=== PATIENT | male | born 1985 | race African-American/Black ===

== ENCOUNTER 2018-01-04 06:04 | Emergency (ER) | payer BC ==
--- NOTE | 2018-01-04 06:27 | EDM.PDOC ---
ED HPI GENERAL MEDICAL PROBLEM - General Chief Complaint: ENT Problem Stated Complaint: TOOTH PAIN Time Seen by Provider: 01/04/18 06:15 Source of Information: Reports: Patient History Limitations: Reports: No Limitations - History of Present Illness INITIAL COMMENTS - FREE TEXT/NARRATIVE: The patient presents with left upper 3rd molar pain. This started about 1 1/2 weeks ago. The pain comes and goes but the past few days it is worse. He is scheduled to go to the dentist in about 2 weeks. He has some edema to the left side of his face. He has no fever or chills. Onset: Gradual Duration: Week(s): (10/07) Location: Reports: Face Quality: Reports: Sharp Severity: Moderate Improves with: Reports: None Worsens with: Reports: None Associated Symptoms: Reports: No Other Symptoms Left Upper Tooth/Teeth Pain Score (Numeric/FACES): 10 - Related Data Allergies Allergy/AdvReac Type Severity Reaction Status Date / Time No Known Allergies Allergy Verified 01/04/18 06:10 Home Meds: Home Meds Hydrocodone/Acetaminophen [Hydrocodon-Acetaminophen 5-325] 1 - 2 each PO Q6HR PRN #20 tablet 01/04/18 [Rx] Hydrocodone/Acetaminophen [Hydrocodon-Acetaminophen 5-325] 1 tab PO Q4H PRN 10/23 [History] Penicillin V Potassium 500 mg PO Q6HR #40 tab 01/04/18 [Rx] Past Medical History - Past Health History Medical/Surgical History: Denies Medical/Surgical History Musculoskeletal History: Reports: Back Pain, Chronic Social & Family History - Family History Family Medical History: Noncontributory - Tobacco Use Smoking Status *Q: Current Every Day Smoker Years of Tobacco use: 1 Packs/Tins Daily: 0.1 - Recreational Drug Use Recreational Drug Use: No ED ROS ENT - Review of Systems Review Of Systems: See Below Constitutional: Reports: No Symptoms HEENT: Reports: Dental Pain Respiratory: Reports: No Symptoms Cardiovascular: Reports: No Symptoms Endocrine: Reports: No Symptoms GI/Abdominal: Reports: No Symptoms : Reports: No Symptoms ED EXAM, ENT - Physical Exam Exam: See Below Exam Limited By: No Limitations General Appearance: Alert, No Apparent Distress Ears: Normal External Exam Nose: Normal Inspection Mouth/Throat: Other (Pain upon palpation and edema with erythema to the gum line of the 3rd upper left molar. Mild edema to the left cheeck.) Course - Vital Signs Last Recorded V/S: Last Vital Signs Temp 97.1 F 01/04/18 06:08 Pulse 60 01/04/18 06:08 Resp 20 01/04/18 06:08 BP 150/101 H 01/04/18 06:08 Pulse Ox 96 01/04/18 06:08 - Re-Assessments/Exams Free Text/Narrative Re-Assessment/Exam: 01/04/18 06:23 I will giv ehim some penicillin VK and some hydrocodone. Departure - Departure Time of Disposition: 06:25 Disposition: Home, Self-Care 01 Condition: Good Clinical Impression: Dental abscess, Pain, dental - Discharge Information Prescriptions: Hydrocodone/Acetaminophen [Hydrocodon-Acetaminophen 5-325] 1 - 2 each PO Q6HR PRN #20 tablet PRN Reason: Pain Penicillin V Potassium 500 mg PO Q6HR #40 tab Referrals: Ellen Jones NP [Primary Care Provider] - Additional Instructions: Take the penicillin VK 1 pill every 6 hours for 10 days. Take the hydrocodone 1 to 2 pills every 6 hours as needed for pain. You may also try an antiinflammatory such as motrin or aleve. Put warm compresses on your face 3 times per day for 3 days. Follow up with your dentist. Please return if you are worse.
== END 2018-01-04 06:35 | disposition home or self-care (01) ==
LOC: JD.ED 06:04
DX: K04.7 Periapical abscess without sinus (principal); F17.210 Nicotine dependence, cigarettes, uncomplicated
CPT/HCPCS: 99282; 99283

== ENCOUNTER 2018-10-14 01:16 | Emergency (ER) | payer BC ==
--- NOTE | 2018-10-14 03:13 | EDM.PDOC ---
ED HPI GENERAL MEDICAL PROBLEM - General Chief Complaint: ENT Problem Stated Complaint: TOOTH PAIN Time Seen by Provider: 10/14/18 03:12 - History of Present Illness INITIAL COMMENTS - FREE TEXT/NARRATIVE: 33-year-old male presents emergency room with dental pain. This started a couple of days ago progressively getting worse involving the right lower rear wisdom tooth. The patient is a problems with this in the past but it's been a year and half or so since that required treatment he has not followed up with the dentist yet. Patient denies any fevers chills no facial swelling he had fluctuant area near the tooth popped it on its own and is been draining intermittently ever since Left Oral/Mouth Pain Score (Numeric/FACES): 8 - Related Data Allergies Allergy/AdvReac Type Severity Reaction Status Date / Time No Known Allergies Allergy Verified 10/14/18 01:54 Home Meds: Home Meds Hydrocodone/Acetaminophen [Hydrocodon-Acetaminophen 5-325] 1 - 2 each PO Q6HR PRN #20 tablet 01/04/18 [Rx] Hydrocodone/Acetaminophen [Hydrocodon-Acetaminophen 5-325] 1 tab PO Q4H PRN 10/23 [History] Penicillin V Potassium 500 mg PO Q6HR #40 tab 01/04/18 [Rx] Amoxicillin 500 mg PO TID #30 tab 10/14/18 [Rx] Past Medical History - Past Health History Medical/Surgical History: Denies Medical/Surgical History Musculoskeletal History: Reports: Back Pain, Chronic Social & Family History - Family History Family Medical History: Noncontributory - Tobacco Use Smoking Status *Q: Never Smoker - Recreational Drug Use Recreational Drug Use: No ED ROS ENT - Review of Systems Review Of Systems: See Below Constitutional: Reports: No Symptoms HEENT: Reports: Dental Pain Respiratory: Reports: No Symptoms Cardiovascular: Reports: No Symptoms GI/Abdominal: Reports: No Symptoms ED EXAM, ENT - Physical Exam Exam: See Below Exam Limited By: No Limitations General Appearance: Alert, No Apparent Distress Ears: Normal External Exam, Normal Canal, Hearing Grossly Normal, Normal TMs Nose: Normal Inspection, Normal Mucousa, No Blood Mouth/Throat: Normal Inspection, Normal Gums, Normal Lips, Normal Oropharynx, Other (He has some gingival swelling no obvious drainage around the affected tooth infected tooth has a large crater in it). No: Normal Teeth Head: Atraumatic, Normocephalic Neck: Normal Inspection, Supple, Non-Tender, Full Range of Motion. No: Lymphadenopathy (L), Lymphadenopathy (R) Respiratory/Chest: No Respiratory Distress, Lungs Clear, Normal Breath Sounds Cardiovascular: Regular Rate, Rhythm, No Edema, No Murmur Course - Vital Signs Last Recorded V/S: Last Vital Signs Temp 36.6 C 10/14/18 01:51 Pulse 109 H 10/14/18 01:51 Resp 16 10/14/18 01:51 BP 142/103 H 10/14/18 01:51 Pulse Ox 98 10/14/18 01:51 - Orders/Labs/Meds Meds: Medications Discontinued Medications Generic Name Dose Route Start Last Admin Trade Name Rachana PRN Reason Stop Dose Admin Amoxicillin 500 mg 10/14/18 03:39 Amoxil PO 10/14/18 03:40 ONETIME ONE Departure - Departure Time of Disposition: 03:40 Disposition: Home, Self-Care 01 Clinical Impression: Dental abscess, Pain, dental - Discharge Information Prescriptions: Amoxicillin 500 mg PO TID #30 tab Referrals: Ellen Jones NP [Primary Care Provider] - Forms: ED Department Discharge Additional Instructions: Return to emergency room if any questions problems worsening symptoms. Follow-up with your dentist as soon as possible, this is only way to get this problem fixed. Take the antibiotics as directed. From the machine out in the waiting room your given Beverly 02/05/25 this is a strong pain medication take one or 2 every 6 hours as needed for pain do not drive or return to work within 12 hours of using this medication.
[2018-10-14] MEDS ORDERED: Amoxicillin 500 MG Cap PO ONE (03:39)
== END 2018-10-14 03:56 | disposition home or self-care (01) ==
LOC: JD.ED 01:16
DX: K04.7 Periapical abscess without sinus (principal)
CPT/HCPCS: 99283; A9270

== ENCOUNTER 2019-07-13 21:40 | Emergency (ER) | payer BC ==
--- NOTE | 2019-07-13 21:56 | EDM.PDOC ---
ED HPI GENERAL MEDICAL PROBLEM - General Chief Complaint: Genitourinary Problem Stated Complaint: lower abdominal pain Time Seen by Provider: 07/13/19 21:56 - History of Present Illness INITIAL COMMENTS - FREE TEXT/NARRATIVE: 34-year-old male presents emergency room with the dysuria and some discharge when he voids. He had this checked several months ago and the only thing found in his urine was sugar. Patient denies any nausea vomiting constipation diarrhea is not having any upper abdominal discomfort he gets some mild lower abdominal discomfort. He says he gets is clear to crusty discharge when he voids. Lower Pelvic Pain Score (Numeric/FACES): 6 - Related Data Allergies Allergy/AdvReac Type Severity Reaction Status Date / Time No Known Allergies Allergy Verified 07/13/19 21:47 Home Meds: Home Meds . [No Known Home Meds] 07/13/19 [History] Past Medical History - Past Health History Medical/Surgical History: Denies Medical/Surgical History Musculoskeletal History: Reports: Back Pain, Chronic Dermatologic History: Reports: Other (See Below) Other Dermatologic History: fatty tissue on back - Infectious Disease History Infectious Disease History: Reports: Chicken Pox Social & Family History - Family History Family Medical History: Noncontributory - Tobacco Use Smoking Status *Q: Former Smoker Used Tobacco, but Quit: Yes Month/Year Tobacco Last Used: december 2018 - Caffeine Use Caffeine Use: Reports: Energy Drinks - Recreational Drug Use Recreational Drug Use: No ED ROS GENERAL - Review of Systems Review Of Systems: See Below Constitutional: Reports: No Symptoms HEENT: Reports: No Symptoms Respiratory: Reports: No Symptoms Cardiovascular: Reports: No Symptoms Endocrine: Reports: No Symptoms GI/Abdominal: Reports: No Symptoms. Denies: Constipation, Diarrhea, Nausea, Vomiting : Reports: Dysuria, Frequency. Denies: Flank Pain Skin: Reports: No Symptoms Neurological: Reports: No Symptoms ED EXAM, GI/ABD - Physical Exam Exam: See Below General Appearance: Alert, No Apparent Distress Respiratory/Chest: No Respiratory Distress, Lungs Clear, Normal Breath Sounds Cardiovascular: Regular Rate, Rhythm, No Edema, No Murmur GI/Abdominal Exam: Normal Bowel Sounds, Soft, Non-Tender, Other (Is some mild suprapubic discomfort) Back Exam: Normal Inspection. No: CVA Tenderness (L), CVA Tenderness (R) Course - Vital Signs Last Recorded V/S: Last Vital Signs Temp 36.1 C 07/13/19 21:45 Pulse 85 07/13/19 21:45 Resp 19 07/13/19 21:45 BP 156/97 H 07/13/19 21:45 Pulse Ox 94 L 07/13/19 21:45 - Orders/Labs/Meds Orders: Active Orders 24 hr Category Date Time Status Influenza Vaccine Charge [RC] .DISCHARGE Care 07/13/19 21:52 Active Labs: Laboratory Tests 07/13/19 07/13/19 07/13/19 Range/Units 22:15 22:45 22:45 Sodium 141 (136-145) mEq/L Potassium 3.4 L (3.5-5.1) mEq/L Chloride 106 (98-107) mEq/L Carbon Dioxide 25 (21-32) mEq/L Anion Gap 13.4 (5-15) BUN 16 (7-18) mg/dL Creatinine 1.2 (0.7-1.3) mg/dL Est Cr Clr Drug Dosing 82.63 mL/min Estimated GFR (MDRD) > 60 (>60) mL/min BUN/Creatinine Ratio 13.3 L (14-18) Glucose 176 H (74-106) mg/dL Calcium 9.1 (8.5-10.1) mg/dL Urine Color Yellow (Yellow) Urine Appearance Clear (Clear) Urine pH 6.5 (5.0-8.0) Ur Specific [place] 1.025 (1.005-1.030) Urine Protein Negative (Negative) Urine Glucose (UA) Negative (Negative) Urine Ketones Negative (Negative) Urine Occult Blood Negative (Negative) Urine Nitrite Negative (Negative) Urine Bilirubin Negative (Negative) Urine Urobilinogen 0.2 (0.2-1.0) Ur Leukocyte Esterase Negative (Negative) Urine RBC 0-5 (0-5) /hpf Urine WBC 0-5 (0-5) /hpf Ur Epithelial Cells 0-5 (0-5) /hpf Urine Bacteria Not seen (FEW) /hpf Urine Mucus Not seen (FEW) /hpf C trachomatis DNA (PCR) Not detected N gonorrhoeae DNA (PCR) Not detected Meds: Medications Discontinued Medications Generic Name Dose Route Start Last Admin Trade Name Freq PRN Reason Stop Dose Admin Influenza Virus Vaccine 1 each 07/13/19 21:52 Pharmacy To Dose - Influenza Vaccine IM 07/13/19 21:53 ONETIME ONE Influenza Virus Vaccine 60 mcg 07/13/19 22:00 07/13/19 22:25 Fluzone Quad [id number] Syringe IM 07/13/19 22:01 60 mcg .ONCE ONE Administration Potassium Chloride 40 meq 07/14/19 00:57 Klor-Con M20 PO 07/14/19 00:58 ONETIME ONE - Re-Assessments/Exams Free Text/Narrative Re-Assessment/Exam: 07/14/19 01:02 GC and Chlamydia are negative at this time his urine looks okay there is no glucose in it but I clearly believe he probably has glucose in it fairly regular basis looking at his random blood sugar. I did discuss this with the patient and strongly encouraged him to follow-up with his regular physician and be evaluated for type 2 diabetes Departure - Departure Time of Disposition: 01:05 Disposition: Home, Self-Care 01 Clinical Impression: Dysuria, Glucose intolerance (impaired glucose tolerance) - Discharge Information Referrals: PCP,Not In Area [Primary Care Provider] - Forms: ED Department Discharge Additional Instructions: Return to the emergency room with any questions problems worsening symptoms. Follow-up with your regular physician discuss evaluation for type 2 diabetes. - My Orders Last 24 Hours: My Active Orders 07/13/19 21:52 Influenza Vaccine Charge [RC] .DISCHARGE - Assessment/Plan Last 24 Hours: My Active Orders 07/13/19 21:52 Influenza Vaccine Charge [RC] .DISCHARGE
[2019-07-13] MEDS ORDERED: FLU Vacc QS2019-20(6MOS+)/PF 60 MCG/0.5 ML SYRINGE IM ONE (22:00)
[2019-07-14 00:52] LABS: C. TRACHOMATIS BY PCR NOT DETECTED; N. GONORRHOEAE BY PCR NOT DETECTED
[2019-07-14] MEDS ORDERED: Potassium Chloride 20 MEQ Tab.ER PO ONE (00:57)
== END 2019-07-14 01:11 | disposition home or self-care (01) ==
LOC: JD.ED 21:40
DX: R30.0 Dysuria (principal); R73.02 Impaired glucose tolerance (oral); Z87.891 Personal history of nicotine dependence
CPT/HCPCS: 36415; 80048; 81001; 87491; 87591; 90686; 99283; 99283-25; G0008

== ENCOUNTER 2020-05-09 21:07 | Emergency (ER) | payer BC ==
[2020-05-09] MEDS ORDERED: Orphenadrine 100 MG Tab.ER PO STA (21:55)
--- NOTE | 2020-05-09 21:58 | EDM.PDOC ---
ED HPI GENERAL MEDICAL PROBLEM - General Chief Complaint: Lower Extremity Injury/Pain Stated Complaint: INJURED BACK OF LEFT THIGH Time Seen by Provider: 05/09/20 21:21 Source of Information: Reports: Patient History Limitations: Reports: No Limitations - History of Present Illness INITIAL COMMENTS - FREE TEXT/NARRATIVE: Mr. Mckeon is a very pleasant 35-year-old gentleman with no chronic medical problems and no past surgical history, who now presents the ED with posterior left thigh pain. He states that he was playing basketball around 18:00 to 9:00 brennon, going for a lay up, when he felt a pop and sudden-onset pain in his proximal posterior left thigh. Pain is induced in his posterior left thigh with flexion of his hip or knee. The patient applied a Lidoderm patch to his posterior left thigh prior to coming to the ED. No prior similar injury. Here in the ED, the patient's initial BP is found to be mildly elevated at 144/90, with a tachycardia of 110 bpm. He is afebrile, saturating 95% on room air. Other than brennon's left thigh injury, the patient denies recent fever, chills, sore throat, ear pain, nasal or sinus congestion, cough, dyspnea, chest pain, palpitations, nausea, vomiting, constipation, diarrhea, abdominal pain, urinary symptoms, recent weight gain or weight loss, recent bloody bowel movements or black bowel movements, recent joint aches, headaches, or rashes. The patient's PCP is Ellen Jones NP. Left Posterior Thigh Pain Score (Numeric/FACES): 10 - Related Data Allergies Allergy/AdvReac Type Severity Reaction Status Date / Time No Known Allergies Allergy Verified 05/09/20 21:17 Home Meds: Home Meds Orphenadrine [Norflex] 1 tab PO Q12H PRN #20 tab.er 05/09/20 [Rx] Past Medical History Endocrine/Metabolic History: Reports: Obesity/BMI 30+ Social & Family History - Family History Family Medical History: Noncontributory - Tobacco Use Smoking Status *Q: Former Smoker Tobacco Use Within Last Twelve Months: Smokeless Tobacco (Chews once every 4 to 5 days) Years of Tobacco use: 15 Packs/Tins Daily: 0.2 Month/Year Tobacco Last Used: Quit 2018 - Caffeine Use Caffeine Use: Reports: None - Alcohol Use Alcohol Use History: Yes Alcohol Use Frequency: Socially - Recreational Drug Use Recreational Drug Use: No - Living Situation & Occupation Living situation: Reports: Single, Alone 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 ED EXAM, GENERAL - Physical Exam Exam: See Below Exam Limited By: No Limitations General Appearance: Alert, WD/WN, No Apparent Distress Extremities: Other (No visible abnormality to the posterior left thigh, when compared to the right, such as swelling, erythema, ecchymosis, or abrasion. There is considerable tenderness, particularly to the midline proximal half of the posterior thigh. The patient has weakness and considerable pain with attempt to flex the knee from complete extension. He has good strength and less discomfort when trying to flex the knee from a 90 degree flexion, and intermediate strength and pain with attempt to flex between 90 and 0 degrees. Neurovascular status of the left lower extremity is intact.) Course - Vital Signs Last Recorded V/S: Last Vital Signs Temp 36.1 C 05/09/20 22:15 Pulse 93 05/09/20 22:15 Resp 18 05/09/20 22:15 BP 136/96 H 05/09/20 22:15 Pulse Ox 95 05/09/20 22:15 - Orders/Labs/Meds Meds: Medications Discontinued Medications Generic Name Dose Route Start Last Admin Trade Name Rachana PRN Reason Stop Dose Admin Orphenadrine Citrate 100 mg 05/09/20 21:55 05/09/20 22:01 Norflex PO 05/09/20 21:56 100 mg ONETIME STA Administration - Re-Assessments/Exams Free Text/Narrative Re-Assessment/Exam: 05/09/20 21:53 As above, the patient suffered a left hamstring injury when he went for a layup while playing basketball earlier [employer]. He has flexion strength to his left hamstring, although with considerable pain. I suspect that he has a hamstring strain, not a rupture, however, I attempted to order an ultrasound of the hamstrings, however, the boiler technician is performing an ultrasound on a different patient, and when I asked her what order I should enter, she replied that she has never performed one of those tests before. I therefore Dennis wrapped the thigh, extending to the waist, followed by supporting tape. The patient will be started on Norflex here in the ED, and I will submit a prescription for the same. I recommended that he take [id number] Tylenol as needed for discomfort, and I will refer him to Dr. Gómez for further evaluation. I will also write a note for the patient's work. Departure - Departure Time of Disposition: 21:56 Disposition: Home, Self-Care 01 Condition: Good Clinical Impression: Left hamstring injury - Discharge Information *PRESCRIPTION DRUG MONITORING PROGRAM REVIEWED*: Not Applicable *COPY OF PRESCRIPTION DRUG MONITORING REPORT IN PATIENT MARIO: Not Applicable Prescriptions: Orphenadrine [Norflex] 1 tab PO Q12H PRN #20 tab.er PRN Reason: Muscle Spasm Instructions: Muscle Strain, Ided-so-Nces Referrals: Ellen Jones NP [Primary Care Provider] - Neri Gómez MD [Physician] - Forms: ED Department Discharge, ED Return to Work/School Form Additional Instructions: You were seen in the emergency room after feeling a pop and developing sudden onset posterior left thigh pain while playing basketball. Based on your history and physical examination, you have most likely strained your left hamstring, however, it is also possible that you have ruptured 1 of the hamstring tendons. Supporting Dennis wrap and tape was provided in the ER. You have been started on the muscle relaxant Norflex, and a prescription for Norflex has been sent to the [facility] pharmacy, located just south and across the [address] from [facility]. Take 1 tablet of Norflex every 12 hours, starting tomorrow morning, 05/10/2020, as prescribed. In addition to Norflex, you may take [id number] Tylenol, however, we recommend that you avoid NSAIDs such as ibuprofen or naproxen at this time. We recommend that you apply ice packs to the back of your left thigh is much as possible over the next 2 days, to help minimize swelling. Please follow-up with the Orthopedic Surgeon Dr. Neri Gómez at the next available appointment. If any other problems, please do not hesitate to return to the ER. Sepsis Event Note (ED) - Evaluation Sepsis Screening Result: No Definite Risk
== END 2020-05-09 22:16 | disposition home or self-care (01) ==
LOC: JD.ED 21:07
DX: S79.922A Unspecified injury of left thigh, initial encounter (principal); E66.9 Obesity, unspecified; Z87.891 Personal history of nicotine dependence; Z68.34 Body mass index [BMI] 34.0-34.9, adult; Y93.67 Activity, basketball
CPT/HCPCS: 99283; A9270

== ENCOUNTER 2021-02-07 00:04 | Day surgery (SDC) | payer BC ==
[2021-02-07] MEDS ORDERED: Glucagon,Human Recombinant 1 MG Vial IVPUSH ONE (00:31)
[2021-02-07] MEDS ORDERED: Lactated Ringers 1,000 ML IV ONE (00:42)
--- NOTE | 2021-02-07 00:48 | EDM.PDOC ---
ED HPI GENERAL MEDICAL PROBLEM - General Chief Complaint: ENT Problem Stated Complaint: UNABLE TO EAT/SWALLOW/CHEST PAIN Time Seen by Provider: 02/07/21 00:29 Source of Information: Reports: Patient History Limitations: Reports: No Limitations - History of Present Illness INITIAL COMMENTS - FREE TEXT/NARRATIVE: Patient arrived to ED via private vehicle He is accompanied by his girlfriend Onset of symptoms was about 1600 today He cooked steak, and had taken a bite of it States that it got stuck in his throat Since that time he has been unable to swallow any food or fluid, reports regurgitation with any attempt Also has been unable to tolerate oral secretions Denies known history of esophageal stricture Endorses 1-2 year history of occasional swallowing delay while eating, or with "anything sweet" Chest Pain Score (Numeric/FACES): 5 - Related Data Allergies Allergy/AdvReac Type Severity Reaction Status Date / Time No Known Allergies Allergy Verified 02/07/21 00:18 Home Meds: Home Meds Omeprazole 20 mg PO BID 60 Days #60 tablet. 02/07/21 [Rx] Phentermine HCl 37.5 mg PO DAILY 02/07/21 [History] Past Medical History - Past Health History Medical/Surgical History: Denies Medical/Surgical History HEENT History: Reports: None Cardiovascular History: Reports: None Respiratory History: Reports: None Gastrointestinal History: Reports: None Genitourinary History: Reports: None Musculoskeletal History: Reports: Back Pain, Chronic Neurological History: Reports: None Psychiatric History: Reports: None Endocrine/Metabolic History: Reports: Obesity/BMI 30+ Hematologic History: Reports: None Immunologic History: Reports: None Oncologic (Cancer) History: Reports: None Dermatologic History: Reports: Other (See Below) Other Dermatologic History: fatty tissue on back - Infectious Disease History Infectious Disease History: Reports: None Social & Family History - Family History Family Medical History: No Pertinent Family History - Tobacco Use Tobacco Use Status *Q: Never Tobacco User - Caffeine Use Caffeine Use: Reports: Coffee - Recreational Drug Use Recreational Drug Use: No - Living Situation & Occupation Living situation: Reports: Single, Alone 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) ED ROS GENERAL - Review of Systems Review Of Systems: See Below Free Text/Narrative/Comment: Constitutional - no fever ENT - no rhinorrhea; no congestion; no epistaxis; dysphagia Cardiovascular - no chest pain Respiratory - no shortness of breath; no cough Gastrointestinal - no abdominal pain; no nausea; vomiting; no diarrhea Musculoskeletal - no neck pain; no back pain; no extremity injury Neurological - no headache; no speech disturbance; no weakness ED EXAM, GENERAL - Physical Exam Exam: See Below Free Text/Narrative:: Constitutional - awake; alert; mild pain distress Head - no facial swelling or weakness Eyes - extra ocular motion intact; conjunctiva normal ENT - no nasal deformity; no epistaxis; normal phonation; mucus membranes moist; Neck - no swelling Respiratory - normal respiratory effort; no crackles or wheezing; no stridor Cardiovascular - regular rhythm; normal rate; S1; S2; grade 1/6 systolic murmur GI/Abdomen - normal bowel sounds; soft; no tenderness Musculoskeletal - grossly normal strength and motion; no swelling or deformity Skin - warm; dry Neurologic - normal speech; no weakness; gait intact Psychiatric - normal mood and affect; memory and attention normal Course - Vital Signs Text/Narrative:: . Considered etiologies included: Dysphagia, food impaction Symptoms and examination were discussed Empiric treatment was provided with IV fluid infusion and glucagon There was no change in symptoms after initial treatment tttt - case was discussed with Dr Ann (surgery), who requested arrangements for endoscopic procedure at 0600 CXR was obtained for compliant of chest pain Analgesic treatment was provided with morphine IV fluid infusion was ordered Patient was observed in ED pending endoscopy by Dr Ann He was subsequently transferred to OR in stable condition Last Recorded V/S: Last Vital Signs Temp 37.0 C 02/07/21 10:02 Pulse 68 02/07/21 10:02 Resp 16 02/07/21 10:02 BP 105/69 02/07/21 10:02 Pulse Ox 94 L 02/07/21 10:02 - Orders/Labs/Meds Labs: Laboratory Tests 02/07/21 Range/Units 00:25 SARS-CoV-2 RNA ([place]) Negative (NEGATIVE) Meds: Medications Discontinued Medications Generic Name Dose Route Start Last Admin Trade Name Freq PRN Reason Stop Dose Admin Fentanyl Confirm 02/07/21 05:56 Fentanyl 250 Mcg/5 Ml Sdv Administered 02/07/21 05:57 Dose 250 mcg .ROUTE .STK-MED ONE Fentanyl 50 mcg 02/07/21 06:51 Fentanyl 100 Mcg/2 Ml Sdv IVPUSH Q5M PRN Pain Glucagon 1 mg 02/07/21 00:31 02/07/21 00:40 Glucagon,Human Recombinant 1 Mg Vial IVPUSH 02/07/21 00:32 1 mg ONETIME ONE Administration Hydromorphone HCl 0.5 mg 02/07/21 06:51 Hydromorphone 0.5 Mg/0.5 Ml Syringe IVPUSH Q10M PRN Pain (severe 7-10) Lactated Ringer's 1,000 mls @ 999 mls/hr 02/07/21 00:42 02/07/21 00:53 Ringers, Lactated IV 02/07/21 01:42 999 mls/hr .BOLUS ONE Administration Lactated Ringer's 1,000 mls @ 140 mls/hr 02/07/21 02:15 02/07/21 02:25 Ringers, Lactated IV 140 mls/hr ASDIRECTED LESLEY Administration Lidocaine HCl Confirm 02/07/21 05:55 Xylocaine-Mpf 1% Administered 02/07/21 05:56 Dose 4 mls @ as directed .ROUTE .STK-MED ONE Lactated Ringer's Confirm 02/07/21 06:53 Ringers, Lactated Administered 02/07/21 06:54 Dose 1,000 mls @ as directed .ROUTE .STK-MED ONE Midazolam HCl Confirm 02/07/21 05:56 Midazolam 1 Mg/Ml 2 Ml Sdv Administered 02/07/21 05:57 Dose 2 mg .ROUTE .STK-MED ONE Miscellaneous Medication Confirm 02/07/21 06:38 Phenylephrine Hcl In 0.9% Nacl 1 Mg/10 Ml Syringe Administered 02/07/21 06:39 Dose 1 mg .ROUTE .STK-MED ONE Miscellaneous Medication Confirm 02/07/21 07:10 Phenylephrine Hcl In 0.9% Nacl 1 Mg/10 Ml Syringe Administered 02/07/21 07:11 Dose 1 mg .ROUTE .STK-MED ONE Morphine Sulfate 4 mg 02/07/21 02:00 02/07/21 02:25 Morphine 4 Mg/Ml Syringe IVPUSH 02/07/21 02:01 4 mg ONETIME ONE Administration Ondansetron HCl Confirm 02/07/21 05:55 Ondansetron 4 Mg/2 Ml Sdv Administered 02/07/21 05:56 Dose 4 mg .ROUTE .STK-MED ONE Ondansetron HCl 4 mg 02/07/21 06:51 Ondansetron 4 Mg/2 Ml Sdv IVPUSH ONETIME PRN Nausea/Vomiting Propofol Confirm 02/07/21 05:56 Propofol 200 Mg/20 Ml Sdv Administered 02/07/21 05:57 Dose 400 mg .ROUTE .[facility] ONE - Radiology Interpretation Free Text/Narrative:: XR chest, PA and lateral, interpreted by fiction writer: DARNELL Departure - Departure Time of Disposition: 06:10 Disposition: Still A Patient 30 Condition: Good Clinical Impression: Esophageal obstruction due to food impaction - Discharge Information Sepsis Event Note (ED) - Evaluation Sepsis Screening Result: No Definite Risk
[2021-02-07] MEDS ORDERED: Morphine 4 MG/ML Syringe IVPUSH ONE (02:00)
[2021-02-07] MEDS ORDERED: Lactated Ringers 1,000 ML IV SCH (02:15)
[2021-02-07] MEDS ORDERED: Lidocaine 1% 4 ML ONE (05:55)
[2021-02-07] MEDS ORDERED: Ondansetron 4 MG/2 ML SDV ONE (05:55)
[2021-02-07] MEDS ORDERED: Midazolam 1 MG/ML 2 ML SDV ONE (05:56)
[2021-02-07] MEDS ORDERED: Propofol 200 MG/20 ML SDV ONE (05:56)
[2021-02-07] MEDS ORDERED: fentaNYL 250 MCG/5 ML SDV ONE (05:56)
--- NOTE | 2021-02-07 06:21 | PCM.CONS ---
H&P History of Present Illness - General Date of Service: 02/07/21 Admit Problem/Dx: Admission Diagnosis/Problem Admission Diagnosis/Problem Obstruction of esophagus due to food impaction Source of Information: Patient History Limitations: Reports: No Limitations - History of Present Illness Initial Comments - Free Text/Narative: Patient was eating steak last night and felt a piece of steak getting stuck in his throat. He was not able to swallow anything after that moment. Everything he tried to swallow came up. He reports that he has no GERD. Thia morning he still continues to have a feeling of a food bolus in his esophagus. No chest pain, no crepitus. He has had episodes of feeling like the food is passing very slowly at times especially with meats but nothing has ever become stuck before. He is otherwise healthy. No family history of esophageal problems. Onset of Symptoms: Reports: Sudden Duration of Symptoms: Reports: Hour(s): (14), Constant Location: Reports: Chest Quality: Reports: Other Severity: Moderate Improves with: Reports: None Worsens with: Reports: None Context: Reports: Other (swallowing) Chest Pain Score (Numeric/FACES): 5 - Related Data Allergies/Adverse Reactions: Allergies Allergy/AdvReac Type Severity Reaction Status Date / Time No Known Allergies Allergy Verified 02/07/21 00:18 Home Medications: Home Meds Phentermine HCl 37.5 mg PO DAILY 02/07/21 [History] Past Medical History - Past Health History Medical/Surgical History: Denies Medical/Surgical History HEENT History: Reports: None Cardiovascular History: Reports: None Respiratory History: Reports: None Gastrointestinal History: Reports: None Genitourinary History: Reports: None Musculoskeletal History: Reports: Back Pain, Chronic Neurological History: Reports: None Psychiatric History: Reports: None Endocrine/Metabolic History: Reports: Obesity/BMI 30+ Hematologic History: Reports: None Immunologic History: Reports: None Oncologic (Cancer) History: Reports: None Dermatologic History: Reports: Other (See Below) Other Dermatologic History: fatty tissue on back - Infectious Disease History Infectious Disease History: Reports: None Social & Family History - Family History Family Medical History: No Pertinent Family History - Tobacco Use Tobacco Use Status *Q: Never Tobacco User - Caffeine Use Caffeine Use: Reports: Coffee - Recreational Drug Use Recreational Drug Use: No - Living Situation & Occupation Living situation: Reports: Single, Alone 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) H&P Review of Systems - Review of Systems: Review Of Systems: See Below General: Reports: No Symptoms HEENT: Reports: No Symptoms Pulmonary: Reports: No Symptoms Cardiovascular: Reports: No Symptoms Gastrointestinal: Reports: Difficulty Swallowing Genitourinary: Reports: No Symptoms Musculoskeletal: Reports: Back Pain Skin: Reports: No Symptoms Psychiatric: Reports: No Symptoms Neurological: Reports: No Symptoms Hematologic/Lymphatic: Reports: No Symptoms Immunologic: Reports: No Symptoms Exam - Exam Exam: See Below - Vital Signs Vital Signs: Last Vital Signs Temp 96.8 F L 02/07/21 00:16 Pulse 84 02/07/21 00:16 Resp 16 02/07/21 00:16 BP 160/103 H 02/07/21 00:16 Pulse Ox 97 02/07/21 00:16 Weight: 97.114 kg - Exam General: Alert, Oriented, Cooperative Lungs: Clear to Auscultation, Normal Respiratory Effort Cardiovascular: Regular Rate, Regular Rhythm GI/Abdominal Exam: Soft, Non-Tender - Patient Data Lab Results Last 24 hrs: Laboratory Results - last 24 hr 02/07/21 Range/Units 00:25 SARS-CoV-2 RNA ([place]) Negative (NEGATIVE) Sepsis Event Note - Evaluation Sepsis Screening Result: No Definite Risk - Focused Exam Vital Signs: Vital Signs Temp Pulse Resp BP Pulse Ox 02/07/21 00:16 96.8 F L 84 16 160/103 H 97 Consult PN Assessment/Plan Procedures: Procedures CHYLMD TRACH DNA AMP PROBE (07/13/19) EMERGENCY DEPT VISIT (05/09/20) EMERGENCY DEPT VISIT (01/04/18) IIV4 VACC NO PRSV 0.5 ML IM (07/13/19) IMMUNIZATION ADMIN (07/13/19) METABOLIC PANEL TOTAL CA (07/13/19) N.GONORRHOEAE DNA AMP PROB (07/13/19) ROUTINE VENIPUNCTURE (07/13/19) URINALYSIS AUTO W/SCOPE (07/13/19) Problem List Initiated/Reviewed/Updated: No My Orders Last 24 Hours: My Active Orders 02/07/21 05:44 Patient Status [ADT] Routine Plan: Patient has symptoms concerning for persistent esophageal foreign body. I recommended EGD with disimpaction, possible esophageal dilation. We discussed risks, benefits and alternatives. Specific risks discussed include bleeding and perforation. I conveyed to him that he is at increased risks for perforation due to the impaction and instrumentation required to dislodge the bolus. We discussed that is this happens then he may need surgery to fix. Patient understands and agrees to proceed with the procedure. Informed consent was obtained.
--- NOTE | 2021-02-07 06:50 | PCM.PREANE ---
Preanesthetic Assessment - Procedure Proposed Procedure: EGD Foreign Body Removal - Anesthesia/Transfusion/Family Hx Anesthesia History: No Prior Anesthesia Family History of Anesthesia Reaction: No - Review of Systems General: No Symptoms Pulmonary: No Symptoms (Vapes after work every day. Denies cough. ) Cardiovascular: No Symptoms Gastrointestinal: Difficulty Swallowing, Nausea, Vomiting Neurological: Pre-Existing Deficit (Back Pain) - Physical Assessment NPO Status Date: 02/06/21 NPO Status Time: 17:00 Vital Signs: Last Vital Signs Temp 36.0 C L 02/07/21 00:16 Pulse 84 02/07/21 00:16 Resp 16 02/07/21 00:16 BP 160/103 H 02/07/21 00:16 Pulse Ox 97 02/07/21 00:16 Height: 1.7 m Weight: 97.114 kg ASA Class: 2 Mental Status: Alert & Oriented x3 Airway Class: Mallampati = 2 Dentition: Reports: Implants (Front ) Thyro-Mental Finger Breadths: 3 Mouth Opening Finger Breadths: 3 ROM/Head Extension: Full Lungs: Clear to Auscultation, Normal Respiratory Effort Cardiovascular: Regular Rhythm, Tachycardia - Lab Values: Laboratory Last Values SARS-CoV-2 RNA ([place]) Negative (NEGATIVE) 02/07/21 00:25 - Allergies Allergies/Adverse Reactions: Allergies Allergy/AdvReac Type Severity Reaction Status Date / Time No Known Allergies Allergy Verified 02/07/21 00:18 - Anesthesia Plan Pre-Op Medication Ordered: Anxiolytic - Acknowledgements Anesthesia Type Planned: General Anesthesia (RSI with Cricoid Pressure) Pt an Appropriate Candidate for the Planned Anesthesia: Yes Alternatives and Risks of Anesthesia Discussed w Pt/Guardian: Yes Pt/Guardian Understands and Agrees with Anesthesia Plan: Yes PreAnesthesia Questionnaire - Past Health History Medical/Surgical History: Denies Medical/Surgical History HEENT History: Reports: None Cardiovascular History: Reports: None Respiratory History: Reports: None Gastrointestinal History: Reports: None Genitourinary History: Reports: None Musculoskeletal History: Reports: Back Pain, Chronic Neurological History: Reports: None Psychiatric History: Reports: None Endocrine/Metabolic History: Reports: Obesity/BMI 30+ Hematologic History: Reports: None Immunologic History: Reports: None Oncologic (Cancer) History: Reports: None Dermatologic History: Reports: Other (See Below) Other Dermatologic History: fatty tissue on back - Infectious Disease History Infectious Disease History: Reports: None - SUBSTANCE USE Tobacco Use Status *Q: Never Tobacco User Recreational Drug Use History: No - HOME MEDS Home Medications: Home Meds Phentermine HCl 37.5 mg PO DAILY 02/07/21 [History] - CURRENT (IN HOUSE) MEDS Current Meds: Current Medications Lactated Ringer's (Ringers, Lactated) 1,000 mls @ 140 mls/hr IV ASDIRECTED LESLEY Last Admin: 02/07/21 02:25 Dose: 140 mls/hr Documented by: Discontinued Medications Fentanyl (Fentanyl 250 Mcg/5 Ml Sdv) Confirm Administered Dose 250 mcg .ROUTE .STK-MED ONE Stop: 02/07/21 05:57 Glucagon (Glucagon,Human Recombinant 1 Mg Vial) 1 mg IVPUSH ONETIME ONE Stop: 02/07/21 00:32 Last Admin: 02/07/21 00:40 Dose: 1 mg Documented by: Lactated Ringer's (Ringers, Lactated) 1,000 mls @ 999 mls/hr IV .BOLUS ONE Stop: 02/07/21 01:42 Last Admin: 02/07/21 00:53 Dose: 999 mls/hr Documented by: Lidocaine HCl (Xylocaine-Mpf 1%) Confirm Administered Dose 4 mls @ as directed .ROUTE .STK-MED ONE Stop: 02/07/21 05:56 Midazolam HCl (Midazolam 1 Mg/Ml 2 Ml Sdv) Confirm Administered Dose 2 mg .ROUTE .STK-MED ONE Stop: 02/07/21 05:57 Miscellaneous Medication (Phenylephrine Hcl In 0.9% Nacl 1 Mg/10 Ml Syringe) Confirm Administered Dose 1 mg .ROUTE .STK-MED ONE Stop: 02/07/21 06:39 Morphine Sulfate (Morphine 4 Mg/Ml Syringe) 4 mg IVPUSH ONETIME ONE Stop: 02/07/21 02:01 Last Admin: 02/07/21 02:25 Dose: 4 mg Documented by: Ondansetron HCl (Ondansetron 4 Mg/2 Ml Sdv) Confirm Administered Dose 4 mg .ROUTE .STK-MED ONE Stop: 02/07/21 05:56 Propofol (Propofol 200 Mg/20 Ml Sdv) Confirm Administered Dose 400 mg .ROUTE .STK-MED ONE Stop: 02/07/21 05:57
[2021-02-07] MEDS ORDERED: HYDROmorphone 0.5 MG/0.5 ML Syringe IVPUSH PRN (06:51)
[2021-02-07] MEDS ORDERED: fentaNYL 100 MCG/2 ML SDV IVPUSH PRN (06:51)
[2021-02-07] MEDS ORDERED: Ondansetron 4 MG/2 ML SDV IVPUSH PRN (06:51)
[2021-02-07] MEDS ORDERED: Lactated Ringers 1,000 ML ONE (06:53)
[2021-02-07] MEDS ORDERED: Succinylcholine/Sod PF 100 MG/5 ML SYRINGE IV ONE (06:53)
--- NOTE | 2021-02-07 07:12 | CR ---
Chest: 2 views of the chest were obtained. Comparison: No prior chest imaging is available. Heart size is slightly enlarged. Upper mediastinum is normal. Lungs are clear with no acute parenchymal change seen. No acute osseous finding is seen. Impression: 1. Heart size is felt to be slightly enlarged. Please correlate with the patient's symptoms. 2. Nothing acute is otherwise seen on 2 view chest x-ray. Diagnostic code #2
--- NOTE | 2021-02-07 08:16 | PCM.POSTAN ---
POST ANESTHESIA ASSESSMENT - MENTAL STATUS Mental Status: Alert, Oriented - VITAL SIGNS Vital Signs: Last Vital Signs Temp 36.0 C L 02/07/21 00:16 Pulse 84 02/07/21 00:16 Resp 16 02/07/21 00:16 BP 160/103 H 02/07/21 00:16 Pulse Ox 97 02/07/21 00:16 - RESPIRATORY Respiratory Status: Respiratory Rate WNL, Airway Patent, O2 Saturation Stable - CARDIOVASCULAR CV Status: Pulse Rate WNL, Blood Pressure Stable - GASTROINTESTINAL GI Status: No Symptoms - PAIN Pain Score: 0 - POST OP HYDRATION Hydration Status: Adequate & Stable
--- NOTE | 2021-02-07 08:43 | PROC ---
DATE OF OPERATION: 02/07/2021 SURGEON: Jaxon Ann MD PREOPERATIVE DIAGNOSIS: Esophageal foreign body. POSTOPERATIVE DIAGNOSES: 1. Esophageal foreign body n the mid esophagus at 30 cm from incisors.. 2. Duodenitis. 3. Diffuse esophageal rigidity without localized stenosis. 4. White plaques in the esophageal mucosa from the mid to distal esophagus. 5. Mild esophagitis. ANESTHESIA: General anesthesia. OPERATION PERFORMED: 1. Esophagogastroduodenoscopy. 2. Foreign body disimpaction with biopsies. COMPLICATIONS: None. ESTIMATED BLOOD LOSS: Minimal. INDICATION AND CONSENT: The patient is a 35-year-old male who has been having mild dysphagia in the past, who presented with esophageal food impaction since 4 p.m. yesterday. The patient waited at home, but this did not get better, came to the emergency department around midnight with persistent symptoms. I discussed with the emergency physician and offered the patient EGD with removal of the food bolus. I discussed with the patient risks, benefits, and alternatives and informed consent was obtained. DESCRIPTION OF PROCEDURE: The patient was taken to the procedure room, placed in supine position. General anesthesia was induced and then time-out was performed and then we began the procedure. Therapeutic Olympus endoscope was placed into the mouth and taken down the esophagus. In the mid esophagus around 30 cm from the incisors, there was a foreign body consistent with a food bolus. Endoscopic prong forceps were used to try to remove this food bolus. Before this, first we tried to push the food bolus down distally into the stomach. This was unsuccessful. Therefore, prong forceps were used to remove this bolus. Bolus was very difficult to remove and it was coming out only piecemeal. We spent about 60 minutes removing this bolus piecemeal, and after removing a significant portion of the food bolus, the small more distal piece was able to be pushed down into the stomach. Then, the scope was passed into the stomach and taken all the way to the second portion of duodenum. There was mild duodenitis in the second portion. There was moderate duodenitis in the bulb. The antrum appeared to have minimal gastritis. On retroflexion, there was no hiatal hernia. There were mucosal white plaques in the lesser curve of the stomach body, and this area was biopsied as well as the duodenum, duodenal bulb and antrum. All biopsies were taken with cold forceps. Then, we withdrew the scope into the GE junction. There appeared to be mild esophagitis marked by edema at the GE junction. Distal esophagus to mid esophagus had white plaques on the mucosa suggestive of fungal esophagitis. We withdrew the scope back into the proximal esophagus which appeared fairly normal. At the area of impaction 30 cm from incisors, there was no discrete stricture. The scope was able to pass this area without any resistance; however, this is the area where the white plaques appeared to start and this area had some rigidity to it. Biopsies were taken in the proximal, mid as well as distal esophagus for pathologic examination. All biopsies were taken with cold forceps. EBL was minimal. Once this was done, there was no need for dilation in this exam. Air was suctioned out and procedure was concluded. The patient will be monitored to make sure that there are no complications immediately postop, and then the patient will be allowed to return home. We will start the patient on PPI. The patient is to follow up in 2 weeks for pathologic discussion. MMODAL /[id number]
--- NOTE | 2021-02-07 10:40 | PCM48HPAN ---
Post Anesthesia Note - EVALUATION WITHIN 48HRS OF ANESTHETIC Vital Signs in Normal Range: Yes Patient Participated in Evaluation: Yes Respiratory Function Stable: Yes Airway Patent: Yes Cardiovascular Function Stable: Yes Hydration Status Stable: Yes Pain Control Satisfactory: Yes Nausea and Vomiting Control Satisfactory: Yes Mental Status Recovered: Yes Vital Signs: Last Vital Signs Temp 37.0 C 02/07/21 10:02 Pulse 68 02/07/21 10:02 Resp 16 02/07/21 10:02 BP 105/69 02/07/21 10:02 Pulse Ox 94 L 02/07/21 10:02
== END 2021-02-07 10:20 | disposition home or self-care (01) ==
LOC: JD.ED 00:04 → JD.SDS 05:44
PROVIDERS: ATTEND Surgery
DX: T18.128A Food in esophagus causing other injury, initial encounter (principal); K22.2 Esophageal obstruction; K29.80 Duodenitis without bleeding; K22.10 Ulcer of esophagus without bleeding; K31.89 Other diseases of stomach and duodenum; K22.8 Other specified diseases of esophagus; E66.9 Obesity, unspecified; Z68.33 Body mass index [BMI] 33.0-33.9, adult; Z01.812 Encounter for preprocedural laboratory examination; Z20.822 Contact with and (suspected) exposure to COVID-19
CPT/HCPCS: 43239; 43247; 71046; 87635; 96361; 96374; 96375; 99285; J0330; J1610; J2250; J2270; J2370; J2405; J2704; J3010; J7120; 00731; U0002

== ENCOUNTER 2022-05-03 07:14 | Day surgery (SDC) | payer BC ==
[2022-05-03] MEDS ORDERED: Ondansetron 4 MG/2 ML SDV IVPUSH ONE (07:39)
[2022-05-03] MEDS ORDERED: Glucagon,Human Recombinant 1 MG Vial IVPUSH ONE (07:39)
[2022-05-03] MEDS ORDERED: Succinylcholine 200 MG/10 ML MDV ONE (09:26)
[2022-05-03] MEDS ORDERED: Lidocaine 1% 6 ML ONE (09:26)
[2022-05-03] MEDS ORDERED: Dexamethasone 4 MG/ML SDV ONE (09:26)
[2022-05-03] MEDS ORDERED: Ondansetron 4 MG/2 ML SDV ONE (09:26)
[2022-05-03] MEDS ORDERED: Midazolam 1 MG/ML 2 ML SDV ONE (09:27)
[2022-05-03] MEDS ORDERED: Lactated Ringers 1,000 ML ONE ×2 (09:27→10:14)
[2022-05-03] MEDS ORDERED: Propofol 200 MG/20 ML SDV ONE ×2 (09:27)
[2022-05-03] MEDS ORDERED: fentaNYL 250 MCG/5 ML SDV ONE (09:27)
[2022-05-03] MEDS ORDERED: HYDROmorphone 0.5 MG/0.5 ML Syringe IVPUSH PRN (10:24)
[2022-05-03] MEDS ORDERED: fentaNYL 100 MCG/2 ML SDV IVPUSH PRN (10:24)
[2022-05-03] MEDS ORDERED: Ondansetron 4 MG/2 ML SDV IVPUSH PRN (10:24)
== END 2022-05-03 12:38 | disposition home or self-care (01) ==
LOC: JD.ED 07:14 → JD.SDS 08:48
PROVIDERS: ATTEND Surgery
DX: T18.128A Food in esophagus causing other injury, initial encounter (principal); K20.0 Eosinophilic esophagitis; K22.89 Other specified disease of esophagus; E66.9 Obesity, unspecified; F17.210 Nicotine dependence, cigarettes, uncomplicated; G89.29 Other chronic pain; D17.1 Benign lipomatous neoplasm of skin and subcutaneous tissue of trunk; F10.20 Alcohol dependence, uncomplicated; Z98.890 Other specified postprocedural states; Z79.899 Other long term (current) drug therapy; Z68.34 Body mass index [BMI] 34.0-34.9, adult; X58.XXXA Exposure to other specified factors, initial encounter
CPT/HCPCS: 43247; J0330; J1100; J1610; J2250; J2405; J2704; J3010; J7120; 96374; 96375; 99284-25

== ENCOUNTER 2022-09-24 03:08 | Emergency (ER) | payer BC ==
[2022-09-24] MEDS ORDERED: Acetaminophen/oxyCODONE 325-5 MG Tab PO ONE (03:44)
[2022-09-24] MEDS ORDERED: Ondansetron 4 MG Tab.DIS PO ONE (03:45)
[2022-09-24 04:07] LABS: CORONAVIRUS COVID-19 NAA NEGATIVE (NEGATIVE)
[2022-09-24] MEDS ORDERED: Penicillin V Potassium 500 MG Tab PO ONE (04:22)
== END 2022-09-24 04:39 | disposition home or self-care (01) ==
LOC: JD.ED 03:08
DX: J03.90 Acute tonsillitis, unspecified (principal); Z20.822 Contact with and (suspected) exposure to COVID-19
CPT/HCPCS: 0240U; 99283; A9270

== ENCOUNTER 2022-09-26 17:40 | Emergency (ER) | payer BC ==
[2022-09-26] MEDS ORDERED: HYDROmorphone 1 MG/ML Syringe IVPUSH ONE ×2 (19:41→22:27)
[2022-09-26] MEDS ORDERED: Ondansetron 4 MG/2 ML SDV IVPUSH ONE (19:41)
[2022-09-26] MEDS ORDERED: Iopamidol 612 MG/ML 100 ML Bottle IVPUSH ONE (19:49)
[2022-09-26] MEDS ORDERED: Sodium Chloride 0.9% 10 ML Syringe FLUSH ONE (19:49)
[2022-09-26] MEDS: Sodium Chloride 0.9% 1,000 ML IV SCH (20:45)
[2022-09-26] MEDS: Ampicillin/Sulbactam Na 3 GM in Sodium Chloride 0.9% 100 ML IV SCH (22:43)
[2022-09-27] MEDS ORDERED: HYDROmorphone 1 MG/ML Syringe IVPUSH ONE ×2 (01:21→05:18)
[2022-09-27] MEDS ORDERED: diphenhydrAMINE 50 MG/ML SDV IVPUSH ONE (01:21)
[2022-09-27] MEDS: Ampicillin/Sulbactam Na 3 GM in Sodium Chloride 0.9% 100 ML IV SCH ×2 (04:46→09:31)
[2022-09-27] MEDS ORDERED: Ondansetron 4 MG/2 ML SDV IVPUSH ONE (05:22)
[2022-09-27] MEDS ORDERED: HYDROmorphone 0.5 MG/0.5 ML Syringe IVPUSH ONE (07:58)
[2022-09-27] MEDS: Sodium Chloride 0.9% 1,000 ML IV SCH (10:32)
[2022-09-27] MEDS ORDERED: Ketorolac 30 MG/ML SDV IVPUSH ONE (10:33)
[2022-09-27] MEDS ORDERED: methylPREDNISolone Sodium Succinate 125 MG/2 ML SDV IVPUSH ONE (10:33)
== END 2022-09-27 13:30 | disposition home or self-care (01) ==
LOC: JD.ED 17:40
DX: J03.90 Acute tonsillitis, unspecified (principal); K21.9 Gastro-esophageal reflux disease without esophagitis; F17.290 Nicotine dependence, other tobacco product, uncomplicated; E66.9 Obesity, unspecified; Z68.32 Body mass index [BMI] 32.0-32.9, adult; Z79.899 Other long term (current) drug therapy
CPT/HCPCS: 36415; 70491; 80053; 85007; 85027; 87651; 96361; 96365; 96375; 96376; 99283; J0295; J1170; J1200; J1885; J2405; J2930; J3490; J7030; Q9967

== ENCOUNTER 2023-04-13 04:41 | Emergency (ER) | payer BC ==
[2023-04-13] MEDS ORDERED: Glucagon,Human Recombinant 1 MG Vial IVPUSH ONE ×2 (04:58→05:05)
[2023-04-13 05:07] LABS: BASOPHILS ABSOLUTE AUTO 0.04 K/mm3 (0.01-0.08); BASOPHILS PERCENT AUTO 0.5 % (0.1-1.2); EOSINOPHILS ABSOLUTE AUTO 0.38 K/mm3 (0.04-0.54); HEMATOCRIT 45.5 % (40.1-51.0); HEMOGLOBIN 15.7 gm/dl (13.7-17.5); IMMATURE GRAN ABSOLUTE AUTO 0.01 K/mm3 (0.00-0.10); IMMATURE GRAN PERCENT AUTO 0.1 % (<=1.0); LYMPHOCYTES ABSOLUTE AUTO 3.01 K/mm3 (1.32-3.57); LYMPHOCYTES PERCENT AUTO 39.7 % (21.8-53.1); MEAN CORPUSCULAR HEMOGLOBIN 29.8 pg (25.7-32.2); MEAN CORPUSCULAR HGB CONC 34.5 g/dl (32.2-35.5); MEAN CORPUSCULAR VOLUME 86.3 fl (79.0-92.2); MEAN PLATELET VOLUME 10.5 fl (9.4-12.3); MONOCYTES ABSOLUTE AUTO 0.47 K/mm3 (0.30-0.82); MONOCYTES PERCENT AUTO 6.2 % (5.3-12.2); NEUTROPHILS ABSOLUTE AUTO 3.67 K/mm3 (1.78-5.38); NEUTROPHILS PERCENT AUTO 48.5 % (34.0-67.9); PLATELET COUNT,PLT 218 K/mm3 (163-337); RED BLOOD CELL COUNT 5.27 M/mm3 (4.63-6.08); WHITE BLOOD CELL COUNT,WBC 7.58 K/mm3 (4.23-9.07)
[2023-04-13] MEDS ORDERED: Sodium Chloride 0.9% 10 ML Syringe FLUSH PRN (05:25)
[2023-04-13] MEDS ORDERED: Iopamidol 612 MG/ML 100 ML Bottle IVPUSH ONE (05:25)
[2023-04-13 05:28] LABS: ALBUMIN 4.1 g/dl (3.4-5.0); ANION GAP 15.4 (5-15); BILIRUBIN TOTAL 0.4 mg/dL (0.2-1.0); CREATININE 1.1 mg/dL (0.7-1.3); EST CRCL DRUG DOSING (CG) 87.63 mL/min; POTASSIUM,K 3.4 mEq/L (3.5-5.1); PROTEIN TOTAL,TP 8.3 g/dl (6.4-8.2)
[2023-04-13 06:17] LABS: CALCIUM 8.7 mg/dL (8.5-10.1)
== END 2023-04-13 06:00 | disposition home or self-care (01) ==
LOC: JD.ED 04:41
DX: T17.2 Foreign body in pharynx (principal); K21.9 Gastro-esophageal reflux disease without esophagitis; E66.9 Obesity, unspecified; Z86.16 Personal history of COVID-19; Z68.33 Body mass index [BMI] 33.0-33.9, adult
CPT/HCPCS: 36415; 80053; 85025; 96374; 96375; 99284; J1610; J3360

== ENCOUNTER 2023-11-18 15:50 | Emergency (ER) | payer BC ==
[2023-11-18] MEDS: Sodium Chloride 0.9% 1,000 ML IV STA (17:13)
[2023-11-18] MEDS: Sodium Chloride 0.9% 10 ML Syringe FLUSH PRN (17:14)
[2023-11-18 17:16] LABS: BASOPHILS ABSOLUTE AUTO 0.1 K/mm3 (0.0-0.2); BASOPHILS PERCENT AUTO 0.8 % (0.0-1.0); EOSINOPHILS ABSOLUTE AUTO 0.6 K/mm3 (0.0-0.4); EOSINOPHILS PERCENT AUTO 5.5 % (0.0-6.0); HEMATOCRIT 46.8 % (42.0-52.0); HEMOGLOBIN 16.7 gm/dl (14.0-18.0); IMMATURE GRAN ABSOLUTE AUTO 0.02 K/mm3 (0.00-0.05); IMMATURE GRAN PERCENT AUTO 0.2 % (0.0-0.4); LYMPHOCYTES PERCENT AUTO 40.4 % (24.0-44.0); MEAN CORPUSCULAR HGB CONC 35.7 g/dl (32.0-36.0); MEAN PLATELET VOLUME 11.1 fl (9.4-12.4); MONOCYTES ABSOLUTE AUTO 0.6 K/mm3 (0.0-0.8); MONOCYTES PERCENT AUTO 5.6 % (0.0-8.0); NEUTROPHILS ABSOLUTE AUTO 4.7 K/mm3 (1.8-7.7); NEUTROPHILS PERCENT AUTO 47.5 % (41.0-71.0); PLATELET COUNT,PLT 227 K/mm3 (150-400); RED BLOOD CELL COUNT 5.57 M/mm3 (4.52-5.90); WHITE BLOOD CELL COUNT,WBC 9.99 K/mm3 (3.9-11.3)
[2023-11-18 17:28] LABS: ALBUMIN 4.1 g/dl (3.4-5.0); ANION GAP 16.4 (5-15); BILIRUBIN TOTAL 0.8 mg/dL (0.2-1.0); C-REACTIVE PROTEIN 0.2 mg/dL (<1.0); CALCIUM 8.9 mg/dL (8.5-10.1); CREATININE 1.2 mg/dL (0.7-1.3); EST CRCL DRUG DOSING (CG) 79.56 mL/min; PROTEIN TOTAL,TP 8.3 g/dl (6.4-8.2)
[2023-11-18 17:31] LABS: POTASSIUM,K 3.4 mEq/L (3.5-5.1)
[2023-11-18 17:53] LABS: HEMOGLOBIN A1C 9.8 %
[2023-11-18 18:02] LABS: APPEARANCE,URINE CLEAR (Clear); BILIRUBIN,URINE NEGATIVE (Negative); COLOR,URINE YELLOW (Yellow); GLUCOSE,URINE TRACE (Negative); KETONES,URINE 1+ (Negative); LEUKOCYTE ESTERASE,URINE NEGATIVE (Negative); NITRITE,URINE NEGATIVE (Negative); OCCULT BLOOD,URINE NEGATIVE (Negative); PH,URINE 5.5 (5.0-8.0); PROTEIN,URINE 1+ (Negative); UROBILINOGEN,URINE 0.2 (0.2-1.0)
[2023-11-18 18:02] LABS: CORONAVIRUS COVID-19 NAA NEGATIVE (NEGATIVE); INFLUENZA A NAA NEGATIVE (NEGATIVE); RESPIRATORY SYNCYTIAL VIR NAA NEGATIVE (NEGATIVE)
[2023-11-18 18:37] LABS: BACTERIA,URINE FEW /hpf (FEW); MUCUS,URINE MODERATE /hpf (FEW); RBC,URINE 0-5 /hpf (0-5); SQUAMOUS EPITHELIAL CELLS,UR 0-5 /hpf (0-5); WBC,URINE 0-5 /hpf (0-5)
== END 2023-11-18 19:10 | disposition home or self-care (01) ==
LOC: JD.ED 15:50
DX: E11.65 Type 2 diabetes mellitus with hyperglycemia (principal); K21.9 Gastro-esophageal reflux disease without esophagitis; Z87.891 Personal history of nicotine dependence; Z86.16 Personal history of COVID-19; Z79.84 Long term (current) use of oral hypoglycemic drugs; Z79.899 Other long term (current) drug therapy
CPT/HCPCS: 0241U; 36415; 80053; 81001; 82947; 83036; 85025; 86140; 96360; 99284; J3490; J7030

== ENCOUNTER 2024-05-27 09:33 | Day surgery (SDC) | payer BC ==
[2024-05-27] MEDS: Lactated Ringers 1,000 ML IV SCH (09:30)
[~2024-05-27 09:33] MED LIST: Sodium Chloride 0.9% 10 ML Syringe FLUSH PRN; Sodium Chloride 0.9% 10 ML Syringe FLUSH SCH
[2024-05-27] MEDS ORDERED: Propofol 200 MG/20 ML SDV ONE ×5 (10:25→11:12)
[2024-05-27] MEDS ORDERED: Midazolam 1 MG/ML 2 ML SDV ONE (10:27)
[2024-05-27] MEDS ORDERED: dexmedeTOMIDine HCl 200 MCG/2 ML SDV ONE (10:28)
[2024-05-27] MEDS ORDERED: Ondansetron 4 MG/2 ML SDV IVPUSH ONE (10:37)
[2024-05-27] MEDS ORDERED: fentaNYL 100 MCG/2 ML SDV IVPUSH PRN (10:37)
[2024-05-27] MEDS ORDERED: Phenylephrine 1% 10 MG/ML SDV ONE (10:53)
[2024-05-27] MEDS: Lidocaine 1% with EPINEPHrine 1:100,000 20 ML MDV ONE (11:22)
[2024-05-27] MEDS: Bupivacaine 0.5% 30 ML SDV ONE (11:22)
[2024-05-27] MEDS ORDERED: oxyCODONE 5 MG Tab PO PRN (12:42)
== END 2024-05-27 13:30 | disposition home or self-care (01) ==
LOC: JD.SDS 09:33
PROVIDERS: ATTEND Surgery
DX: D17.22 Benign lipomatous neoplasm of skin and subcutaneous tissue of left arm (principal); E11.21 Type 2 diabetes mellitus with diabetic nephropathy; K21.9 Gastro-esophageal reflux disease without esophagitis; G47.00 Insomnia, unspecified; Z87.891 Personal history of nicotine dependence; Z79.84 Long term (current) use of oral hypoglycemic drugs; Z79.899 Other long term (current) drug therapy
CPT/HCPCS: 23071; 82947; J0665; J2250; J2371; J2704; J3490; J7120; 00300

== ENCOUNTER 2025-07-11 16:17 | Emergency (ER) | payer BC ==
[2025-07-11] MEDS ORDERED: Sodium Chloride 0.9% 10 ML Syringe FLUSH PRN (16:26)
[2025-07-11 16:43] LABS: BASOPHILS ABSOLUTE AUTO 0.0 K/mm3 (0.0-0.2); BASOPHILS PERCENT AUTO 0.3 % (0.0-1.0); EOSINOPHILS ABSOLUTE AUTO 0.2 K/mm3 (0.0-0.4); EOSINOPHILS PERCENT AUTO 2.6 % (0.0-6.0); IMMATURE GRAN ABSOLUTE AUTO 0.03 K/mm3 (0.00-0.05); IMMATURE GRAN PERCENT AUTO 0.4 % (0.0-0.4); LYMPHOCYTES ABSOLUTE AUTO 2.0 K/mm3 (1.0-4.8); LYMPHOCYTES PERCENT AUTO 28.3 % (24.0-44.0); MEAN PLATELET VOLUME 9.9 fl (9.4-12.4); MONOCYTES ABSOLUTE AUTO 0.5 K/mm3 (0.0-0.8); MONOCYTES PERCENT AUTO 6.4 % (0.0-8.0); NEUTROPHILS ABSOLUTE AUTO 4.4 K/mm3 (1.8-7.7); NEUTROPHILS PERCENT AUTO 62.0 % (41.0-71.0); NRBC ABSOLUTE 0.00 (0.00-0.02); NRBC PERCENT 0.0 % (0.0-0.2); PLATELET COUNT,PLT 234 K/mm3 (150-400); RED BLOOD CELL COUNT 5.53 M/mm3 (4.52-5.90); WHITE BLOOD CELL COUNT,WBC 7.04 K/mm3 (3.9-11.3)
[2025-07-11] MEDS: Sodium Chloride 0.9% 10 ML Syringe FLUSH ONE (17:03)
[2025-07-11] MEDS: Iopamidol 612 MG/ML 100 ML Bottle IVPUSH ONE (17:03)
[2025-07-11 17:06] LABS: A/G RATIO 1.0 (1-2); ALANINE AMINOTRANSFERASE,ALT 59.0 U/L (16-63); ASPARTATE AMNIOTRANSFERASE,AST 24.0 U/L (15-37); BILIRUBIN TOTAL 0.5 mg/dL (0.2-1.0); BLOOD UREA NITROGEN,BUN 14.0 mg/dL (7-18); CARBON DIOXIDE,CO2 26.0 mEq/L (21-32); CHLORIDE,CL 107.0 mEq/L (98-107); CREATININE 1.1 mg/dL (0.7-1.3); EST CRCL DRUG DOSING (CG) 85.13 mL/min; ESTIMATED GFR 88.0 mL/min (>60); GLUCOSE RANDOM 97.0 mg/dL (70-99); POTASSIUM,K 3.6 mEq/L (3.5-5.1); PROTEIN TOTAL,TP 8.1 g/dl (6.4-8.2); SODIUM,NA 143.0 mEq/L (136-145)
== END 2025-07-11 19:13 | disposition home or self-care (01) ==
LOC: JD.ED 16:17
DX: R10.84 Generalized abdominal pain (principal); E11.9 Type 2 diabetes mellitus without complications; F17.200 Nicotine dependence, unspecified, uncomplicated; Z88.8 Allergy status to other drugs, medicaments and biological substances; Z79.899 Other long term (current) drug therapy
CPT/HCPCS: 36415; 74177; 80053; 83690; 85025; 86140; 99284; Q9967; 99283

== ENCOUNTER 2025-07-16 11:03 | Emergency (ER) | payer BC ==
[2025-07-16] MEDS ORDERED: Naloxone 0.4 MG/ML SDV IVPUSH PRN (11:24)
[2025-07-16] MEDS: Sodium Chloride 0.9% 10 ML Syringe FLUSH ONE (11:38)
[2025-07-16] MEDS: Iopamidol 612 MG/ML 100 ML Bottle IVPUSH ONE (11:38)
[2025-07-16] MEDS: Ondansetron 4 MG/2 ML SDV IV STA (11:48)
[2025-07-16] MEDS: Ketorolac 60 MG/2 ML SDV IVPUSH STA (11:49)
[2025-07-16] MEDS: Dicyclomine 20 MG/2 ML SDV IM ONE (11:53)
[2025-07-16 11:57] LABS: BASOPHILS ABSOLUTE AUTO 0.1 K/mm3 (0.0-0.2); BASOPHILS PERCENT AUTO 0.5 % (0.0-1.0); EOSINOPHILS ABSOLUTE AUTO 0.7 K/mm3 (0.0-0.4); EOSINOPHILS PERCENT AUTO 4.8 % (0.0-6.0); IMMATURE GRAN ABSOLUTE AUTO 0.05 K/mm3 (0.00-0.05); IMMATURE GRAN PERCENT AUTO 0.3 % (0.0-0.4); LYMPHOCYTES ABSOLUTE AUTO 2.7 K/mm3 (1.0-4.8); LYMPHOCYTES PERCENT AUTO 18.1 % (24.0-44.0); MEAN PLATELET VOLUME 10.3 fl (9.4-12.4); MONOCYTES ABSOLUTE AUTO 0.8 K/mm3 (0.0-0.8); MONOCYTES PERCENT AUTO 5.0 % (0.0-8.0); NEUTROPHILS ABSOLUTE AUTO 10.8 K/mm3 (1.8-7.7); NEUTROPHILS PERCENT AUTO 71.3 % (41.0-71.0); NRBC ABSOLUTE 0.00 (0.00-0.02); NRBC PERCENT 0.0 % (0.0-0.2); PLATELET COUNT,PLT 339 K/mm3 (150-400); RED BLOOD CELL COUNT 7.13 M/mm3 (4.52-5.90); WHITE BLOOD CELL COUNT,WBC 15.11 K/mm3 (3.9-11.3)
[2025-07-16 12:08] LABS: A/G RATIO 0.9 (1-2); ALANINE AMINOTRANSFERASE,ALT 48.0 U/L (16-63); ASPARTATE AMNIOTRANSFERASE,AST 17.0 U/L (15-37); BILIRUBIN TOTAL 0.6 mg/dL (0.2-1.0); BLOOD UREA NITROGEN,BUN 22.0 mg/dL (7-18); CARBON DIOXIDE,CO2 19.0 mEq/L (21-32); CHLORIDE,CL 105.0 mEq/L (98-107); CREATININE 1.5 mg/dL (0.7-1.3); EST CRCL DRUG DOSING (CG) 62.43 mL/min; ESTIMATED GFR 61.0 mL/min (>60); GLUCOSE RANDOM 183.0 mg/dL (70-99); POTASSIUM,K 3.7 mEq/L (3.5-5.1); PROTEIN TOTAL,TP 9.0 g/dl (6.4-8.2); SODIUM,NA 138.0 mEq/L (136-145)
[2025-07-16] MEDS ORDERED: Magnesium Hydroxide 400 MG/5 ML Susp 30 ML Cup PO STA (12:20)
== END 2025-07-16 14:00 | disposition home or self-care (01) ==
LOC: JD.ED 11:03
DX: N28.9 Disorder of kidney and ureter, unspecified (principal); E86.0 Dehydration; E11.9 Type 2 diabetes mellitus without complications; Z88.8 Allergy status to other drugs, medicaments and biological substances; Z79.899 Other long term (current) drug therapy
CPT/HCPCS: 36415; 74177; 80053; 83605; 83690; 83735; 85025; 96361; 96372; 96374; 96375; 99284; J0500; J1885; J2405; J7030; Q9967

== ENCOUNTER 2025-07-17 03:47 | Emergency (ER) | payer BC ==
[2025-07-17] MEDS ORDERED: Sodium Chloride 0.9% 10 ML Syringe FLUSH PRN (05:10)
[2025-07-17] MEDS: Alum Hydrox/Mag Hydrox/Simeth 30 ML, Lidocaine 2% 15 ML PO ONE (05:18)
[2025-07-17 05:34] LABS: BASOPHILS ABSOLUTE AUTO 0.1 K/mm3 (0.0-0.2); BASOPHILS PERCENT AUTO 0.9 % (0.0-1.0); EOSINOPHILS ABSOLUTE AUTO 0.7 K/mm3 (0.0-0.4); EOSINOPHILS PERCENT AUTO 5.6 % (0.0-6.0); IMMATURE GRAN ABSOLUTE AUTO 0.04 K/mm3 (0.00-0.05); IMMATURE GRAN PERCENT AUTO 0.3 % (0.0-0.4); LYMPHOCYTES ABSOLUTE AUTO 3.2 K/mm3 (1.0-4.8); LYMPHOCYTES PERCENT AUTO 23.9 % (24.0-44.0); MEAN PLATELET VOLUME 9.8 fl (9.4-12.4); MONOCYTES ABSOLUTE AUTO 0.7 K/mm3 (0.0-0.8); MONOCYTES PERCENT AUTO 5.0 % (0.0-8.0); NEUTROPHILS ABSOLUTE AUTO 8.5 K/mm3 (1.8-7.7); NEUTROPHILS PERCENT AUTO 64.3 % (41.0-71.0); NRBC ABSOLUTE 0.00 (0.00-0.02); NRBC PERCENT 0.0 % (0.0-0.2); PLATELET COUNT,PLT 315 K/mm3 (150-400); RED BLOOD CELL COUNT 6.98 M/mm3 (4.52-5.90); WHITE BLOOD CELL COUNT,WBC 13.28 K/mm3 (3.9-11.3)
[2025-07-17 05:43] LABS: APPEARANCE,URINE SLT CLOUDY (Clear); GLUCOSE,URINE NEGATIVE (Negative); OCCULT BLOOD,URINE 1+ (Negative)
[2025-07-17] MEDS: Sodium Chloride 0.9% 10 ML Syringe FLUSH PRN (05:43)
[2025-07-17] MEDS: Iopamidol 755 Mg/ML 100 ML Bottle IVPUSH ONE (05:43)
[2025-07-17 05:54] LABS: BUPRENORPHINE SCREEN,URINE NEGATIVE (CUTOFF=10); METHADONE SCREEN, URINE NEGATIVE (CUT0FF=200); METHAMPHETAMINES SCREEN, URINE NEGATIVE (CUTOFF=500); OXYCODONE SCREEN,URINE NEGATIVE (CUT0FF=100); THC SCREEN,URINE 20 NG/ML NEGATIVE (CUTOFF=50)
[2025-07-17 05:55] LABS: AMPHETAMINES SCREEN, URINE NEGATIVE (CUTOFF=500)
[2025-07-17 06:02] LABS: EPITHELIAL CELLS,URINE 0-5 /hpf (0-5)
[2025-07-17 06:13] LABS: A/G RATIO 0.9 (1-2); ALANINE AMINOTRANSFERASE,ALT 42 U/L (16-63); ASPARTATE AMNIOTRANSFERASE,AST 18 U/L (15-37); BILIRUBIN TOTAL 0.6 mg/dL (0.2-1.0); BLOOD UREA NITROGEN,BUN 24 mg/dL (7-18); CARBON DIOXIDE,CO2 20 mEq/L (21-32); CHLORIDE,CL 104 mEq/L (98-107); CREATININE 1.4 mg/dL (0.7-1.3); ESTIMATED GFR 66 mL/min (>60); ETHANOL BLOOD MEDICAL 0.01 gm% (0.00); GLUCOSE RANDOM 140 mg/dL (70-99); POTASSIUM,K 3.7 mEq/L (3.5-5.1); PROTEIN TOTAL,TP 8.2 g/dl (6.4-8.2); SODIUM,NA 139 mEq/L (136-145); TROPONIN I HIGH SENSITIVITY 7 pg/mL (<=76)
[2025-07-17] MEDS: Acetaminophen/HYDROcodone 325-5 MG Tab PO ONE (08:59)
== END 2025-07-17 08:54 | disposition home or self-care (01) ==
LOC: JD.ED 03:47
DX: R19.5 Other fecal abnormalities (principal); R10.13 Epigastric pain; D58.2 Other hemoglobinopathies; R79.89 Other specified abnormal findings of blood chemistry; E11.9 Type 2 diabetes mellitus without complications; K21.9 Gastro-esophageal reflux disease without esophagitis; R07.9 Chest pain, unspecified; Z88.8 Allergy status to other drugs, medicaments and biological substances; Z79.899 Other long term (current) drug therapy
CPT/HCPCS: 36415; 71275; 74177; 80053; 80306; 80307; 81001; 83690; 83735; 84484; 85025; 93005; 96360; 99285; A9270; J3490; J7030; Q9967